=== PATIENT | female | born 1985 | race Two or more races ===

== ENCOUNTER → 2024-06-27 | Outpatient (BNVA) | payer MEDICAID, SELFPAY | END | disposition home or self-care (01) | PROVIDERS: PCP Nurse Practitioner Family; Referring Provider Nurse Practitioner Family; Visit Provider Nurse Practitioner Family | DX: G47.00 Insomnia, unspecified (principal); F41.9 Anxiety disorder, unspecified; Z76.89 Persons encountering health services in other specified circumstances; Z13.220 Encounter for screening for lipoid disorders; R00.2 Palpitations | CPT/HCPCS: 90471; 90686; 99214 ==

== ENCOUNTER → 2024-07-07 | Outpatient (BNVA) | payer MEDICAID, SELFPAY | END | disposition home or self-care (01) | PROVIDERS: PCP Nurse Practitioner Family; Referring Provider Nurse Practitioner Family; Visit Provider Nurse Practitioner Family | DX: Z00.01 Encounter for general adult medical examination with abnormal findings (principal); G47.00 Insomnia, unspecified; F41.9 Anxiety disorder, unspecified; F40.9 Phobic anxiety disorder, unspecified; Z13.220 Encounter for screening for lipoid disorders; R49.0 Dysphonia; R00.2 Palpitations; Z13.1 Encounter for screening for diabetes mellitus; J32.4 Chronic pansinusitis; E66.9 Obesity, unspecified; Z68.30 Body mass index [BMI] 30.0-30.9, adult; R01.1 Cardiac murmur, unspecified | CPT/HCPCS: 93005; 99215 ==

== ENCOUNTER → 2024-07-31 | Outpatient (BNVA) | payer MEDICAID, SELFPAY | END | disposition home or self-care (01) | PROVIDERS: PCP Nurse Practitioner Family; Referring Provider Nurse Practitioner Family; Visit Provider Nurse Practitioner Family | DX: F51.05 Insomnia due to other mental disorder (principal); F41.9 Anxiety disorder, unspecified; F40.9 Phobic anxiety disorder, unspecified; R49.0 Dysphonia; R73.03 Prediabetes; D50.9 Iron deficiency anemia, unspecified; N92.0 Excessive and frequent menstruation with regular cycle | CPT/HCPCS: 99214 ==

== ENCOUNTER → 2024-08-22 | Outpatient (BNVA) | payer MEDICAID, SELFPAY | END | disposition home or self-care (01) | PROVIDERS: PCP Nurse Practitioner Family; Referring Provider Nurse Practitioner Family; Visit Provider Nurse Practitioner Family | DX: M25.562 Pain in left knee (principal); M25.561 Pain in right knee; D50.0 Iron deficiency anemia secondary to blood loss (chronic); N92.0 Excessive and frequent menstruation with regular cycle; M25.50 Pain in unspecified joint; G89.29 Other chronic pain | CPT/HCPCS: 85018; 99215 ==

== ENCOUNTER → 2024-08-23 | Outpatient (CLI) | payer MEDICAID, SELFPAY ==
--- NOTE | 2024-08-23 | XR_ITS ---
Examination: Knee bilateral, 6 views Technique: Knee AP, lateral, oblique each knee total 6 views Date and time of exam: August 23, 2024 1314 hours INDICATIONS: Bilateral knee pain beginning 5 minutes ago FINDINGS: Mild osteopenia Mild bilateral narrowing medial joint spaces Mild or early osteoarthritis patellofemoral joints No fractures IMPRESSION: Bilateral mild osteoarthritis
== END | disposition home or self-care (01) ==
PROVIDERS: Referring Provider Nurse Practitioner Family; Visit Provider Nurse Practitioner Family
DX: M17.0 Bilateral primary osteoarthritis of knee (principal)
CPT/HCPCS: 73562

== ENCOUNTER → 2024-09-22 | Outpatient (BNVA) | payer MEDICAID, SELFPAY | END | disposition home or self-care (01) | PROVIDERS: PCP Nurse Practitioner Family; Referring Provider Nurse Practitioner Family; Visit Provider Nurse Practitioner Family | DX: N63.31 Unspecified lump in axillary tail of the right breast (principal); M25.562 Pain in left knee; M25.561 Pain in right knee; Z01.83 Encounter for blood typing; D50.0 Iron deficiency anemia secondary to blood loss (chronic) | CPT/HCPCS: 99215 ==

== ENCOUNTER → 2024-10-04 | Outpatient (CLI) | payer MEDICAID, SELFPAY ==
--- NOTE | 2024-10-04 11:00 | XR_ITS ---
Examination: Pelvic ultrasound, transabdominal, complete Technique: Transabdominal ultrasound of the pelvis performed using grayscale imaging Date and time of exam: October 04 11:15 AM INDICATIONS: Irregular menses beginning 2 years ago TECHNIQUE: Uterus 12.0 cm endometrial stripe 1.5 cm No uterine mass or intrauterine gestation Right ovary 3.0 cm arterial flow 13 mm follicular cyst Left ovary 3.0 cm arterial flow 18 mm likely cyst IMPRESSION: Negative examination
--- NOTE | 2024-10-04 11:30 | XR_ITS ---
Examination: Thyroid sonography complete TECHNIQUE: Grayscale sonographic images thyroid lobes Send date and time: October 04, 2024 1132 hours INDICATIONS: Dysphonia 3 years FINDINGS: Right thyroid 4.3 cm No solid nodules Left thyroid 3.3 cm No solid nodules IMPRESSION: Negative study
== END | disposition home or self-care (01) ==
LOC: CDIM 10:44
PROVIDERS: Referring Provider Nurse Practitioner Family; Visit Provider Nurse Practitioner Family
DX: R49.0 Dysphonia (principal); D50.0 Iron deficiency anemia secondary to blood loss (chronic); N92.0 Excessive and frequent menstruation with regular cycle
CPT/HCPCS: 76536; 76856

== ENCOUNTER → 2024-10-09 | Outpatient (BNVA) | payer MEDICAID, SELFPAY | END | disposition home or self-care (01) | PROVIDERS: PCP Nurse Practitioner Family; Referring Provider Nurse Practitioner Family; Visit Provider Nurse Practitioner Family | DX: Z71.2 Person consulting for explanation of examination or test findings (principal); M25.50 Pain in unspecified joint; G89.29 Other chronic pain; M25.562 Pain in left knee; M25.561 Pain in right knee; T78.40XA Allergy, unspecified, initial encounter; Z01.83 Encounter for blood typing; D50.9 Iron deficiency anemia, unspecified | CPT/HCPCS: 96372; 99215; J3301 ==

== ENCOUNTER → 2024-10-16 | Outpatient (BNVA) | payer MEDICAID, SELFPAY | END | disposition home or self-care (01) | PROVIDERS: PCP Nurse Practitioner Family; Referring Provider Nurse Practitioner Family; Visit Provider Nurse Practitioner Family | DX: Z71.2 Person consulting for explanation of examination or test findings (principal); D50.0 Iron deficiency anemia secondary to blood loss (chronic); T78.40XA Allergy, unspecified, initial encounter; R49.0 Dysphonia | CPT/HCPCS: 99212; G0463 ==

== ENCOUNTER → 2024-12-21 | Outpatient (BNVA) | payer MEDICAID, SELFPAY | END | disposition home or self-care (01) | PROVIDERS: PCP Nurse Practitioner Family; Referring Provider Nurse Practitioner Family; Visit Provider Nurse Practitioner Family | DX: F41.9 Anxiety disorder, unspecified (principal); M25.562 Pain in left knee; M25.561 Pain in right knee; G47.00 Insomnia, unspecified; F32.1 Major depressive disorder, single episode, moderate | CPT/HCPCS: 99214 ==

== ENCOUNTER → 2025-01-04 | Outpatient (BNVA) | payer MEDICAID, SELFPAY | END | disposition home or self-care (01) | PROVIDERS: PCP Nurse Practitioner Family; Referring Provider Nurse Practitioner Family; Visit Provider Nurse Practitioner Family | DX: F41.9 Anxiety disorder, unspecified (principal); F32.9 Major depressive disorder, single episode, unspecified | CPT/HCPCS: 99214 ==

== ENCOUNTER 2025-01-16 14:38 | Outpatient (AMB) | payer MEDICAID, SELFPAY ==
[2025-01-16 14:55] VITALS: BP 129/76; PULSE 78; RESP 17; TEMP 36.7; O2SAT 98; BMI 28.8
--- NOTE | 2025-01-16 14:55 | AMB.GYNCLNOT ---
Vital Signs 01/16/25 14:55 Height 1.68 m Height Method Measured Weight 80.966 kg Weight Measurement Method Standing Scale BMI 28.8 BP 129/76 Blood Pressure Source Automatic Cuff Blood Pressure Location Right Upper Arm Position Sitting Respiration 17 Pulse 78 Pulse Source Monitor Temp 98.1 F Temp Source Temporal Artery Scan Pulse Oximetry (%) 98 Oxygen Delivery Method Room Air Allergies/Home Meds Allergies & Medications Allergies No Known Allergies Allergy (Verified 01/16/25 14:56) Medication Reconciliation hydroxyzine HCl 50 mg tablet 50 mg PO QHS 90 days #90 tabs 10/16/24 [Rx Confirmed 01/16/25] ferrous sulfate 325 mg (65 mg iron) tablet 325 mg PO QDAY #30 tabs 10/19/24 [Rx Confirmed 01/16/25] tranexamic acid 650 mg tablet 650 mg PO Q8H 6 days #18 tabs 01/17/25 [Rx] Intake Visit Data Collection New Patient or Established: Established Patient (seen at [facility] within 3 years) Reason for Visit:: REF EXCESSIVE MENSES Consent obtained for Telemed Visit: No Seen by Clinical Staff ONLY (RN/MA): No 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: No Do You Feel Safe at Home: Yes Authorities Contacted: N/A PCP or OBGYN visit in last 3 months: Yes Date of Last PCP or OBGYN visit: 01/04/25 Hx Now: No Are you currently on any form of Control: No Last menstrual period: 01/02/25 Pain Present Currently: No Pain Scale Used: Tang-Tillman/Numerical Pain scale:: 0 Smoking Status Smoking Status: Never smoker 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 Menstrual regularity: regular Flow: heavy Monthly: Yes How many days does period last: 7 Age at menarche: 9 Menopausal: No Currently 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 1. Little interest or pleasure in doing things: not at all PHQ-9 8. Moving or speaking so slowly that other people could have noticed? - Or the opposite - being so fidgety or restless that you have been moving around a lot more than usual: more than half the days Source: Developed by Drs. Kevin Ramsey, Narcisa Cook, Ty Melton and colleagues, with an educational leatha from [employer]. Social History Living Situation History Lives With: Family Housing: House Tobacco History Smoking Status: Never smoker Alcohol History Alcohol Intake: Never Substance Use History Substance Use: NEVER Domestic Abuse History Do You Feel Safe at Home: Yes History of Present Illness HPI Narrative Giselle Cornelius presents with irregular and heavy menstrual bleeding that has been ongoing for approximately 7-8 months. The patient reports that her menstrual cycle timing remains regular, but the flow has become significantly heavier than her usual pattern. She describes the bleeding as very, very heavy when it occurs. This change in menstrual pattern is new for her, as she states it was not like this before. Additionally, Giselle mentions a small lump that she has noticed for the past 7-8 months. The lump appeared without any apparent cause such as an insect bite or illness. The patient's tubes were previously tied during a . She has undergone two sections in the past. Giselle denies having diabetes or any other current medical conditions. She has not tried any medications or treatments for this condition prior to this visit. Obstetric History: - GTPAL: G2 T2 L2 - Two sections performed - Tubal ligation performed during the most recent section Medical History: - Enlarged uterus with thickened endometrial lining Surgical History: - section with bilateral tubal ligation - Second section (different ) Social History: - Has at least one child (delivered by Dr. Crowe via ) ROS: General: Negative for weight loss. Genitourinary: Positive for irregular menstrual bleeding, very heavy menstrual flow. Hematological/Lymphatic: Positive for small lymph node. Exam General General Appearance: alert, in no apparent distress and healthy appearing Head Head exam: atraumatic Neck Neck exam: Present normal inspection and trachea midline Chest Chest inspection: Present normal inspection and symmetric chest wall rise External exam: Present normal external exam; Absent tenderness Neuro Neurological exam: Present oriented X3 Psych Psychiatric exam: Present normal affect and normal mood Office Procedures OB Clinic LOC & Office Proc's Nursing/Assessment Patient Status: Established Patient OB Clinic Nursing Assessment: Medication Reconciliation, Update PMH in EMR and Vital Signs OB Clinic Coordination of Care: Complex Care and Chronic Disease 1-5, Consent,records obtained, informed consent, Education Simp Pt/Fam and Staff clarify orders Established Patient Charge Established Patient Point Assignment: 85 Established Patient Point Charge: EP Level 3 (80-115) Assessment & Plan Diagnosis / Problem List (1) Abnormal uterine and vaginal bleeding, unspecified: Status: Acute (2) Iron deficiency anemia: Status: Acute Plan Abnormal Uterine Bleeding Plan: - Prescribe tranexamic acid for 5 days starting on the first day of menstrual period ? Explained medication is not a hormone or control ? Provided education on usage and timing ? Will provide multiple refills - Schedule outpatient Dilation and Curettage (D&C) procedure ? Explained procedure details: 5-minute duration, general anesthesia, performed in operating room ? Informed patient this is the most effective option (compared to 3-month hormone shot or 5-year IUD) ? Obtain insurance approval and schedule hospital slot - Follow up in approximately 1 month or when surgery is approved - Consider delaying surgery if prescribed medication provides relief Enlarged Lymph Node Plan: - Reassure patient that the lymph node is not of immediate concern - Schedule follow-up examination every 3 months to monitor
== END 2025-01-16 15:06 | disposition home or self-care (01) ==
LOC: HODSOBC 14:38
PROVIDERS: PCP Nurse Practitioner Family; Referring Provider Nurse Practitioner Family; Supervising Provider Obstetrics & Gynecology; Visit Provider Obstetrics & Gynecology
DX: N93.9 Abnormal uterine and vaginal bleeding, unspecified (principal); D50.9 Iron deficiency anemia, unspecified; R59.9 Enlarged lymph nodes, unspecified
CPT/HCPCS: 99213; G0463

== ENCOUNTER → 2025-04-05 | Outpatient (BNVA) | payer MEDICAID, SELFPAY | END | disposition home or self-care (01) | PROVIDERS: PCP Nurse Practitioner Family; Referring Provider Nurse Practitioner Family; Visit Provider Nurse Practitioner Family | DX: F41.9 Anxiety disorder, unspecified (principal); F32.1 Major depressive disorder, single episode, moderate; D50.9 Iron deficiency anemia, unspecified; Z23 Encounter for immunization | CPT/HCPCS: 90471; 90686; 99214 ==

== ENCOUNTER → 2025-04-23 | Outpatient (BNVA) | payer MEDICAID, SELFPAY | END | disposition home or self-care (01) | PROVIDERS: PCP Nurse Practitioner Family; Referring Provider Nurse Practitioner Family; Visit Provider Nurse Practitioner Family | DX: Z71.2 Person consulting for explanation of examination or test findings (principal); D50.9 Iron deficiency anemia, unspecified | CPT/HCPCS: 99212; 99213 ==

== ENCOUNTER → 2025-05-21 | Outpatient (BNVA) | payer MEDICAID, SELFPAY | END | disposition home or self-care (01) | PROVIDERS: PCP Nurse Practitioner Family; Referring Provider Nurse Practitioner Family; Visit Provider Nurse Practitioner Family | DX: F32.1 Major depressive disorder, single episode, moderate (principal); R51.9 Headache, unspecified; D50.9 Iron deficiency anemia, unspecified | CPT/HCPCS: 99214 ==

== ENCOUNTER → 2025-05-28 | Outpatient (BNVA) | payer MEDICAID, SELFPAY | END | disposition home or self-care (01) | PROVIDERS: PCP Nurse Practitioner Primary Care; Referring Provider Nurse Practitioner Primary Care; Visit Provider Nurse Practitioner Primary Care | DX: D50.9 Iron deficiency anemia, unspecified (principal) | CPT/HCPCS: 99213 ==